=== PATIENT | male | born 1970 | race Two or more races ===

== ENCOUNTER 2018-05-22 12:13 | Observation (INO) | payer OTHER ==
[2018-05-22] MEDS ORDERED: Sodium Chloride 0.9% 1,000 ML IV ONE (12:18)
[2018-05-22] MEDS ORDERED: Ondansetron 4 MG/2 ML SDV IVPUSH ONE (12:18)
[2018-05-22] MEDS ORDERED: Morphine 4 MG/ML Syringe IVPUSH ONE ×2 (12:18→13:39)
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
[2018-05-22 12:53] LABS: CHLORIDE,CL 104 mmol/L (98-107); SODIUM,NA 142 mmol/L (136-148)
--- NOTE | 2018-05-22 12:55 | CR ---
INDICATION: Crushing injury to left thumb. TECHNIQUE: Three views left hand. COMPARISON: None. FINDINGS: There is a fracture dislocation of the left thumb. There is lateral displacement of the phalanges relative to the metacarpal with a fracture at the medial base of the proximal phalanx. There also may be a small cortical fracture at the head of the 1st metacarpal. Small butterfly fragments are present adjacent to the fracture plane. Fracture is an open fracture with soft tissue defect extending to the dislocated metacarpophalangeal joint. No other fractures are seen. Underlying bony mineralization is normal. IMPRESSION: Comminuted open fracture dislocation involving the left metacarpophalangeal joint as above. Dictated by Sarbjit Jay MD @ May 22 2018 12:50PM Signed by Dr. Sarbjit Jay @ May 22 2018 12:54PM
[2018-05-22] MEDS ORDERED: Diphtheria,Pertussis(Acell),Tetanus Vaccine 0.5 ML Syringe IM ONE (12:58)
[2018-05-22] MEDS ORDERED: ceFAZolin 1 GM in Premix Bag 1 BAG IV ONE (12:59)
--- NOTE | 2018-05-22 13:11 | CT ---
INDICATION: Trauma. TECHNIQUE: The chest was scanned from apices to lung bases with 100 mL of Isovue-370. Sagittal and coronal reformatted images were generated. FINDINGS: The visualized thyroid gland is unremarkable. Aorta and great vessels are unremarkable. There is no evidence of aneurysm or dissection. No mediastinal or axillary lymphadenopathy is identified. No pneumothorax is identified. No large consolidations or pleural effusions. No displaced rib fractures are identified. No compression fractures in the thoracic spine. Stones/sludge in the gallbladder. IMPRESSION: 1. No pneumothorax or hemothorax. 2. No displaced rib fractures. 3. No evidence of aortic aneurysm or dissection. 4. Stones/sludge in the gallbladder. Please note that all CT scans at this facility use dose modulation, iterative reconstruction, and/or weight-based dosing when appropriate to reduce radiation dose to as low as reasonably achievable. Dictated by Edin Pa MD @ May 22 2018 1:01PM Signed by Dr. Edin Pa @ May 22 2018 1:09PM
--- NOTE | 2018-05-22 13:26 | CT ---
INDICATION: Trauma TECHNIQUE: CT abdomen and pelvis acquired with IV contrast. 100 mL of Isovue 370 administered. COMPARISON: None available FINDINGS: Lower chest: Minimal subsegmental atelectasis. Liver: Unremarkable. Spleen: Unremarkable. Pancreas: Unremarkable. Gallbladder and bile ducts: Cholelithiasis and/ or milk of calcium within the gallbladder dependently, as well as non dependent circumferential calcifications near the gallbladder neck. Adrenal glands: Unremarkable. Kidneys: Unremarkable. GI tract: Small low attenuation foci in the posterior gastric antral wall on images 40 and 42 could be related to luminal fluid within rugal folds. No bowel obstruction. A normal appendix. No significant pericolonic changes. A decompressed segment of the distal sigmoid colon could be related to peristalsis. Vascular structures: Unremarkable. Lymph nodes: Unremarkable. Miscellaneous: No free air or significant free fluid. Mild induration/edema in the anterior lower abdominal wall subcutaneous fat, inferior to the umbilicus. A small fat containing left inguinal hernia. Pelvic Organs: Mild bladder wall thickening, partially related to underdistention. Grossly unremarkable prostate. Bones: Unremarkable for age. IMPRESSION: No evidence of a visceral or vascular injury within the abdomen or pelvis. Focal induration in the anterior lower abdominal wall subcutaneous fat. Cholelithiasis as well as nondependent circumferential calcifications along the gallbladder neck wall. Correlate with sonographic evaluation. Small low-density foci along the posterior gastric antral wall could be related to fluid within rugal folds, although foci of ulceration are not excluded. Correlate clinically to exclude PUD, and if indicated, with endoscopy. Mild bladder wall thickening. Correlate with urinalysis. Dictated by Didier Moon MD @ 05/22/2018 1:23:13 PM Please note that all CT scans at this facility use dose modulation, iterative reconstruction, and/or weight-based dosing when appropriate to reduce radiation dose to as low as reasonably achievable. Dictated by: Didier Moon MD @ 05/22/2018 13:24:52 (Electronically Signed)
[2018-05-22] MEDS ORDERED: Midazolam 1 MG/ML 2 ML SDV ONE (13:58)
[2018-05-22] MEDS ORDERED: Propofol 200 MG/20 ML SDV ONE (13:58)
[2018-05-22] MEDS ORDERED: fentaNYL 250 MCG/5 ML SDV ONE (13:58)
[2018-05-22] MEDS ORDERED: Ondansetron 4 MG/2 ML SDV ONE (14:00)
[2018-05-22] MEDS ORDERED: Dexamethasone 4 MG/ML 5 ML MDV ONE (14:00)
[2018-05-22] MEDS ORDERED: Rocuronium 10 MG/ML 10 ML Syringe ONE (14:01)
[2018-05-22] MEDS ORDERED: Succinylcholine 200 MG/10 ML MDV ONE (14:01)
--- NOTE | 2018-05-22 14:06 | PCM.PREANE ---
Preanesthetic Assessment - Anesthesia/Transfusion/Family Hx Anesthesia History: No Prior Anesthesia Family History of Anesthesia Reaction: No Transfusion History: No Prior Transfusion(s) - Review of Systems General: No Symptoms Pulmonary: No Symptoms Cardiovascular: No Symptoms Gastrointestinal: No Symptoms Neurological: No Symptoms Other: Reports: None - Physical Assessment NPO Status Date: 05/21/18 (solids yest pm, coffee noon) O2 Sat by Pulse Oximetry: 99 Respiratory Rate: 18 Vital Signs: Last Vital Signs Temp 96.8 F 05/22/18 12:18 Pulse 60 05/22/18 12:18 Resp 18 05/22/18 12:18 BP 111/76 05/22/18 12:18 Pulse Ox 99 05/22/18 12:18 Height: 5 ft 6 in Weight: 77.111 kg ASA Class: 1E Mental Status: Alert & Oriented x3 Airway Class: Mallampati = 2 Dentition: Reports: Normal Dentition ROM/Head Extension: Full Lungs: Clear to Auscultation, Normal Respiratory Effort Cardiovascular: Regular Rate, Regular Rhythm - Lab Values: Laboratory Last Values WBC 9.16 K/uL (4.0-11.0) 05/22/18 12:19 RBC 4.66 M/uL (4.50-5.90) 05/22/18 12:19 Hgb 13.9 g/dL (13.0-17.0) 05/22/18 12:19 Hct 39.8 % (38.0-50.0) 05/22/18 12:19 MCV 85.4 fL (80.0-98.0) 05/22/18 12:19 MCH 29.8 pg (27.0-32.0) 05/22/18 12:19 MCHC 34.9 g/dL (31.0-37.0) 05/22/18 12:19 RDW Std Deviation 40.3 fl (28.0-62.0) 05/22/18 12: RDW Coeff of Arturo 13 % (11.0-15.0) 05/22/18 12:19 Plt Count 272 K/uL (150-400) 05/22/18 12:19 MPV 9.60 fL (7.40-12.00) 05/22/18 12:19 Neut % (Auto) 45.4 % (48.0-80.0) L 05/22/18 12:19 Lymph % (Auto) 47.1 % (16.0-40.0) H 05/22/18 12:19 [place] % (Auto) 6.7 % (0.0-15.0) 05/22/18 12:19 Eos % (Auto) 0.7 % (0.0-7.0) 05/22/18 12:19 Baso % (Auto) 0.1 % (0.0-1.5) 05/22/18 12:19 Neut # (Auto) 4.2 K/uL (1.4-5.7) 05/22/18 12:19 Lymph # (Auto) 4.3 K/uL (0.6-2.4) H 05/22/18 12:19 [place] # (Auto) 0.6 K/uL (0.0-0.8) 05/22/18 12:19 Eos # (Auto) 0.1 K/uL (0.0-0.7) 05/22/18 12:19 Baso # (Auto) 0.0 K/uL (0.0-0.1) 05/22/18 12:19 Nucleated RBC % 0.0 /100WBC 05/22/18 12:19 Nucleated RBCs # 0 K/uL 05/22/18 12:19 INR 0.98 05/22/18 12:19 Sodium 142 mmol/L (136-148) 05/22/18 12:19 Potassium 3.3 mmol/L (3.5-5.1) L 05/22/18 12:19 Chloride 104 mmol/L (98-107) 05/22/18 12:19 Carbon Dioxide 25.0 mmol/L (21.0-32.0) 05/22/18 12:19 BUN 11 mg/dL (7.0-18.0) 05/22/18 12:19 Creatinine 1.5 mg/dL (0.8-1.3) H 05/22/18 12:19 Est Cr Clr Drug Dosing TNP 05/22/18 12:19 Estimated GFR (MDRD) 50.4 ml/min 05/22/18 12:19 Glucose 159 mg/dL (74-106) H 05/22/18 12:19 Calcium 9.3 mg/dL (8.5-10.1) 05/22/18 12:19 Total Bilirubin 0.5 mg/dL (0.2-1.0) 05/22/18 12:19 AST 38 IU/L (15-37) H 05/22/18 12:19 ALT 86 IU/L (14-63) H 05/22/18 12:19 Alkaline Phosphatase 79 U/L (46-116) 05/22/18 12:19 Total Protein 7.6 g/dL (6.4-8.2) 05/22/18 12:19 Albumin 3.7 g/dL (3.4-5.0) 05/22/18 12:19 Globulin 3.9 g/dL (2.6-4.0) 05/22/18 12:19 Albumin/Globulin Ratio 0.9 (0.9-1.6) 05/22/18 12:19 - Allergies Allergies/Adverse Reactions: Allergies Allergy/AdvReac Type Severity Reaction Status Date / Time No Known Allergies Allergy Verified 05/22/18 12:56 - Anesthesia Plan Pre-Op Medication Ordered: Other (ED meds ancef and DPT) - Acknowledgements Anesthesia Type Planned: General Anesthesia Pt an Appropriate Candidate for the Planned Anesthesia: Yes Alternatives and Risks of Anesthesia Discussed w Pt/Guardian: Yes Pt/Guardian Understands and Agrees with Anesthesia Plan: Yes Additional Comments: prior good health, work injury around noon today. CT exam in ED was negative for other injuries. PLAN: GA, possibly ETT because of possible long duration of surgery PreAnesthesia Questionnaire - HOME MEDS Home Medications: Home Meds . [No Known Home Meds] 05/22/18 [History] - CURRENT (IN HOUSE) MEDS Current Meds: Current Medications Discontinued Medications Diphtheria/Tetanus/Acell Pertussis (Adacel) 0.5 ml IM .ONCE ONE Stop: 05/22/18 12:59 Last Admin: 05/22/18 13:09 Dose: 0.5 ml Sodium Chloride (Normal Saline) 1,000 mls @ 999 mls/hr IV STAT ONE Stop: 05/22/18 13:18 Last Admin: 05/22/18 13:04 Dose: 999 mls/hr Cefazolin Sodium/Dextrose 1 gm (/ Premix) 50 mls @ 100 mls/hr IV ONETIME ONE Stop: 05/22/18 13:28 Last Admin: 05/22/18 13:10 Dose: 100 mls/hr Morphine Sulfate (Morphine) 4 mg IVPUSH ONETIME ONE Stop: 05/22/18 12:19 Last Admin: 05/22/18 13:04 Dose: 4 mg Morphine Sulfate (Morphine) 4 mg IVPUSH ONETIME ONE Stop: 05/22/18 13:40 Last Admin: 05/22/18 13:48 Dose: 4 mg Ondansetron HCl (Zofran) 8 mg IVPUSH ONETIME ONE Stop: 05/22/18 12:19 Last Admin: 05/22/18 13:04 Dose: 8 mg
[2018-05-22] MEDS ORDERED: Bupivacaine 0.25%/EPINEPHrine 1:200,000 10 ML SDV ONE (14:23)
[2018-05-22] MEDS ORDERED: Bupivacaine 0.25% 10 ML SDV ONE (15:26)
[2018-05-22] MEDS ORDERED: Lidocaine 2% 5 ML SDV ONE (15:26)
[2018-05-22] MEDS ORDERED: Phenylephrine 1% 10 MG/ML SDV ONE (15:57)
[2018-05-22] MEDS ORDERED: fentaNYL 100 MCG/2 ML SDV IVPUSH PRN (18:18)
[2018-05-22] MEDS ORDERED: Sodium Chloride 0.9% 2.5 ML Syringe FLUSH PRN (19:20)
[2018-05-22] MEDS ORDERED: Sodium Chloride 0.9% 10 ML Syringe FLUSH PRN (19:20)
--- NOTE | 2018-05-22 19:26 | PCM.HP ---
H&P History of Present Illness - General Date of Service: 05/22/18 Admit Problem/Dx: Admission Diagnosis/Problem Admission Diagnosis/Problem Traumatic amputation of finger Source of Information: Patient, EMS, Provider, RN History Limitations: Reports: No Limitations - History of Present Illness Initial Comments - Free Text/Narative: crush injury with amputation of left thumb - extensor tendon intact - small skin bridge. Trauma workup negative. Discussed risks and benefits of surgery and he would like to proceed. Informed consent obtained for replantation attempt of the left thumb. Given crush injru, he does understand the damage to the tissues may be to severe, but given that it is a thumb I would strongly recommend at least trying. Onset of Symptoms: Reports: Today, Sudden Duration of Symptoms: Reports: Hour(s): Location: Reports: Upper Extremity, Left Quality: Reports: Ache, Throbbing Improves with: Reports: None Worsens with: Reports: None Context: Reports: Trauma Associated Symptoms: Reports: Other (some mild abdominal and pulvic soreness from where he was crushed. ) Lower Back Pain Score (Numeric/FACES): 5 - Related Data Allergies/Adverse Reactions: Allergies Allergy/AdvReac Type Severity Reaction Status Date / Time No Known Allergies Allergy Verified 05/22/18 12:56 Home Medications: Home Meds . [No Known Home Meds] 05/22/18 [History] H&P Review of Systems - Review of Systems: Review Of Systems: See Below General: Reports: No Symptoms HEENT: Reports: No Symptoms Pulmonary: Reports: No Symptoms Cardiovascular: Reports: No Symptoms Gastrointestinal: Reports: No Symptoms Skin: Reports: Wound Psychiatric: Reports: No Symptoms Neurological: Denies: Numbness (he states he can feel the finger. ) Immunologic: Reports: No Symptoms Exam - Exam Exam: See Below - Vital Signs Vital Signs: Last Vital Signs Temp 96.8 F 05/22/18 12:18 Pulse 60 05/22/18 12:18 Resp 18 05/22/18 14:06 BP 111/76 05/22/18 12:18 Pulse Ox 99 05/22/18 14:06 Weight: 170 lb - Exam General: Alert, Oriented, Cooperative HEENT: EOMI Lungs: Clear to Auscultation, Normal Respiratory Effort Cardiovascular: Regular Rate, Regular Rhythm GI/Abdominal Exam: Normal Bowel Sounds Back Exam: Normal Inspection Extremities: Other (near copmlete amputation of the left thumb. Small skin bridge and extensor tendon intact. No capillary refill of the thumb itself and bone clearly exposed at the mcp joint. Small finger with small laceration. ) Skin: Warm, Dry, Wound (as above. ) Neurological: Cranial Nerves Intact Neuro Extensive - Mental Status: Alert, Oriented x3 - Patient Data Lab Results Last 24 hrs: Laboratory Results - last 24 hr 05/22/18 05/22/18 05/22/18 Range/Units 12:19 12:19 12:19 WBC 9.16 (4.0-11.0) K/uL RBC 4.66 (4.50-5.90) M/uL Hgb 13.9 (13.0-17.0) g/dL Hct 39.8 (38.0-50.0) % MCV 85.4 (80.0-98.0) fL MCH 29.8 (27.0-32.0) pg MCHC 34.9 (31.0-37.0) g/dL RDW Std Deviation 40.3 (28.0-62.0) fl RDW Coeff of Arturo 13 (11.0-15.0) % Plt Count 272 (150-400) K/uL MPV 9.60 (7.40-12.00) fL Neut % (Auto) 45.4 L (48.0-80.0) % Lymph % (Auto) 47.1 H (16.0-40.0) % [place] % (Auto) 6.7 (0.0-15.0) % Eos % (Auto) 0.7 (0.0-7.0) % Baso % (Auto) 0.1 (0.0-1.5) % Neut # (Auto) 4.2 (1.4-5.7) K/uL Lymph # (Auto) 4.3 H (0.6-2.4) K/uL [place] # (Auto) 0.6 (0.0-0.8) K/uL Eos # (Auto) 0.1 (0.0-0.7) K/uL Baso # (Auto) 0.0 (0.0-0.1) K/uL Nucleated RBC % 0.0 /100WBC Nucleated RBCs # 0 K/uL INR 0.98 Sodium 142 (136-148) mmol/L Potassium 3.3 L (3.5-5.1) mmol/L Chloride 104 (98-107) mmol/L Carbon Dioxide 25.0 (21.0-32.0) mmol/L BUN 11 (7.0-18.0) mg/dL Creatinine 1.5 H (0.8-1.3) mg/dL Est Cr Clr Drug Dosing TNP Estimated GFR (MDRD) 50.4 ml/min Glucose 159 H (74-106) mg/dL Calcium 9.3 (8.5-10.1) mg/dL Total Bilirubin 0.5 (0.2-1.0) mg/dL AST 38 H (15-37) IU/L ALT 86 H (14-63) IU/L Alkaline Phosphatase 79 (46-116) U/L Total Protein 7.6 (6.4-8.2) g/dL Albumin 3.7 (3.4-5.0) g/dL Globulin 3.9 (2.6-4.0) g/dL Albumin/Globulin Ratio 0.9 (0.9-1.6) Blood Type Antibody Screen 05/22/18 Range/Units 13:21 WBC (4.0-11.0) K/uL RBC (4.50-5.90) M/uL Hgb (13.0-17.0) g/dL Hct (38.0-50.0) % MCV (80.0-98.0) fL MCH (27.0-32.0) pg MCHC (31.0-37.0) g/dL RDW Std Deviation (28.0-62.0) fl RDW Coeff of Arturo (11.0-15.0) % Plt Count (150-400) K/uL MPV (7.40-12.00) fL Neut % (Auto) (48.0-80.0) % Lymph % (Auto) (16.0-40.0) % [place] % (Auto) (0.0-15.0) % Eos % (Auto) (0.0-7.0) % Baso % (Auto) (0.0-1.5) % Neut # (Auto) (1.4-5.7) K/uL Lymph # (Auto) (0.6-2.4) K/uL [place] # (Auto) (0.0-0.8) K/uL Eos # (Auto) (0.0-0.7) K/uL Baso # (Auto) (0.0-0.1) K/uL Nucleated RBC % /100WBC Nucleated RBCs # K/uL INR Sodium (136-148) mmol/L Potassium (3.5-5.1) mmol/L Chloride (98-107) mmol/L Carbon Dioxide (21.0-32.0) mmol/L BUN (7.0-18.0) mg/dL Creatinine (0.8-1.3) mg/dL Est Cr Clr Drug Dosing Estimated GFR (MDRD) ml/min Glucose (74-106) mg/dL Calcium (8.5-10.1) mg/dL Total Bilirubin (0.2-1.0) mg/dL AST (15-37) IU/L ALT (14-63) IU/L Alkaline Phosphatase (46-116) U/L Total Protein (6.4-8.2) g/dL Albumin (3.4-5.0) g/dL Globulin (2.6-4.0) g/dL Albumin/Globulin Ratio (0.9-1.6) Blood Type O POSITIVE Antibody Screen NEGATIVE Result Diagrams: 05/22/18 12:19 05/22/18 12:19 Imaging Impressions Last 24 hrs: left thumb amputation at the mcp joint - fracture dislocation type injury. *Q Meaningful Use (ADM) - VTE Risk Assess *Q Each Risk Factor Represents 1 Point: Age 41 - 59 years Total Score 1 Point Risk Factors: 1 Each Risk Factor Represents 2 Points: Major surgery greater than 45 minutes Total Score 2 Point Risk Factors: 2 Each Risk Factor Represents 3 Points: None Total Score 3 Point Risk Factors: 0 Each Risk Factor Represents 5 Points: None Total Score 5 Point Risk Factors: 0 Venous Thromboembolism Risk Factor Score *Q: 3 - Problem List (1) Amputation of left thumb SNOMED Code(s): 705281214 ICD Code: S68.012A - COMPLETE TRAUMATIC MCP AMPUTATION OF LEFT THUMB, INIT Status: Acute Priority: High Current Visit: Yes Qualifiers: Encounter type: initial encounter Qualified Code(s): S68.012A - Complete traumatic metacarpophalangeal amputation of left thumb, initial encounter Problem List Initiated/Reviewed/Updated: Yes Orders Last 24hrs: Active Orders 24 hr Category Date Time Status Admission Status [Patient Status] [ADT] Routine ADT 05/22/18 19:16 Ordered Communication Order [RC] STAT Care 05/22/18 13:15 Inactive Elevate Extremity [RC] CONTINUOUS Care 05/22/18 19:17 Ordered Vaccines to be Administered [RC] PER UNIT ROUTINE Care 05/22/18 12:59 Active Vital Signs [RC] PER UNIT ROUTINE Care 05/22/18 19:17 Ordered Wound Care [RC] DAILY Care 05/22/18 19:17 Ordered Regular Diet [DIET] Diet 05/23/18 Breakfast Ordered UA RFX LEA AND CULT IF INDIC [URIN] Stat Lab 05/22/18 12:16 Ordered Acetaminophen/HYDROcodone [[place] 325-5 MG] Med 05/22/18 19:17 Ordered 1 tab PO Q4H PRN Aspirin Med 05/22/18 21:00 Ordered 81 mg PO BEDTIME Enoxaparin [Lovenox] Med 05/22/18 19:30 Ordered 30 mg SUBCUT Q24H Morphine Med 05/22/18 19:17 Ordered 2 mg IVPUSH Q2H PRN Sodium Chloride 0.9% [Saline Flush] Med 05/22/18 19:20 Ordered 10 ml FLUSH ASDIRECTED PRN Sodium Chloride 0.9% [Saline Flush] Med 05/22/18 19:20 Ordered 2.5 ml FLUSH ASDIRECTED PRN cephALEXin [Keflex] Med 05/23/18 00:00 Ordered 500 mg PO Q6HR fentaNYL [Sublimaze] Med 05/22/18 18:18 Active 50 mcg IVPUSH Q5M PRN Convert IV to Saline Lock [OM.PC] Routine Oth 05/22/18 19:20 Ordered SCD [Sequential Compression Device] [OM.PC] Routine Oth 05/22/18 15:50 Ordered Medication Orders Hydrocodone Bitart/Acetaminophen ([place] 325-5 Mg) 1 tab PO Q4H PRN PRN Reason: Pain (moderate 4-6) Aspirin (Aspirin) 81 mg PO BEDTIME SAMANTHA Cephalexin (Keflex) 500 mg PO Q6HR SAMANTHA Enoxaparin Sodium (Lovenox) 30 mg SUBCUT Q24H SAMANTHA Fentanyl (Sublimaze) 50 mcg IVPUSH Q5M PRN PRN Reason: Pain (severe 7-10) Stop: 05/22/18 21:00 Morphine Sulfate (Morphine) 2 mg IVPUSH Q2H PRN PRN Reason: Pain (severe 7-10) Sodium Chloride (Saline Flush) 10 ml FLUSH ASDIRECTED PRN PRN Reason: Keep Vein Open Sodium Chloride (Saline Flush) 2.5 ml FLUSH ASDIRECTED PRN PRN Reason: Keep Vein Open Assessment/Plan Comment:: To The OR for replantation of the left thumb. he does understand that though this type of injury and the appearance make replantation less likely, it is worth a significant attempt for the thumb. All questions answered and informed consent obtained.
--- NOTE | 2018-05-22 19:31 | PCM.OPNOTE ---
- General Post-Op/Procedure Note Date of Surgery/Procedure: 05/22/18 Operative Procedure(s): replantation of the left thumb, carpal tunnel release and left small finger laceration closure 1.5cm simple Pre Op Diagnosis: left thumb amputation and crush injury Post-Op Diagnosis: Same Anesthesia Technique: General LMA, Local Primary Surgeon: Maddie Jackson Complications: None Condition: Fair Free Text/Narrative:: Intake & Output 05/22/18 05/22/18 05/22/18 07:59 15:59 23:59 Output Total 400 Balance -400 Excellent flow through vessel and capillary refill present but slower that we would like. One artery repair, the other was too badly damaged too distal for even a graft. One digital nerve repaired, the other is attenuated but still present in the soft tissue intact. Artery rechecked after closure by opening a suture here and flowing well. Tacked together. Refill in the PACU was improving and the finger was warm with some improvements in color. We will continue to wait to see if the reflow improves. Vessel flowing well and will allow it to declare itself.
--- NOTE | 2018-05-22 19:45 | PCM.POSTAN ---
POST ANESTHESIA ASSESSMENT - MENTAL STATUS Mental Status: Alert, Oriented - RESPIRATORY Respiratory Status: Respiratory Rate WNL, Airway Patent, O2 Saturation Stable - CARDIOVASCULAR CV Status: Pulse Rate WNL, Blood Pressure Stable - GASTROINTESTINAL GI Status: No Symptoms - POST OP HYDRATION Hydration Status: Adequate & Stable
[2018-05-22] MEDS: Aspirin 81 MG Tab.Chew PO SCH (20:21)
[2018-05-22] MEDS ORDERED: Enoxaparin 30 MG/0.3 ML Syringe SUBCUT SCH (20:30)
[2018-05-22] MEDS: Morphine 2 MG/ML Syringe IVPUSH PRN (20:40)
[2018-05-22] MEDS: Acetaminophen/HYDROcodone 325-5 MG Tab PO PRN (22:44)
[2018-05-22] MEDS: Cephalexin 500 MG Cap PO SCH (23:35)
[2018-05-23] MEDS: Acetaminophen/HYDROcodone 325-5 MG Tab PO PRN ×4 (02:53→23:15)
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
[2018-05-23] MEDS: Cephalexin 500 MG Cap PO SCH ×4 (06:20→23:16)
--- NOTE | 2018-05-23 07:39 | PCM48HPAN ---
Post Anesthesia Note - EVALUATION WITHIN 48HRS OF ANESTHETIC Vital Signs in Normal Range: Yes Patient Participated in Evaluation: Yes Respiratory Function Stable: Yes Airway Patent: Yes Cardiovascular Function Stable: Yes Hydration Status Stable: Yes Pain Control Satisfactory: Yes Nausea and Vomiting Control Satisfactory: Yes Mental Status Recovered: Yes Resp Rate: 17 - COMMENTS/OBSERVATIONS Free Text/Narrative:: Denies complaints at this time.
--- NOTE | 2018-05-23 12:17 | PCM.SURGPN ---
- General Info Date of Service: 05/23/18 Date of Surgery/Procedure: 05/22/18 POD#: 1 Post-Op Diagnosis: left thumb amputation Admission Diagnosis/Problem: Traumatic amputation of finger (thumb left) Functional Status: Reports: Pain Controlled, Tolerating Diet, Ambulating Pain Score: 2 - Review of Systems General: Reports: No Symptoms HEENT: Reports: No Symptoms Pulmonary: Reports: No Symptoms Cardiovascular: Reports: No Symptoms Musculoskeletal: Reports: Arm Pain, Hand Pain Skin: Denies: Bruising, Rash Neurological: Reports: Numbness, Paresthesia Psychiatric: Reports: No Symptoms - Patient Data Vitals - Most Recent: Last Vital Signs Temp 99 F 05/23/18 11:43 Pulse 87 05/23/18 11:43 Resp 16 05/23/18 11:43 BP 120/63 05/23/18 11:43 Pulse Ox 95 05/23/18 11:43 Weight - Most Recent: 170 lb I&O - Last 24 Hours: Intake & Output 05/22/18 05/23/18 05/23/18 23:59 07:59 15:59 Intake Total 3200 480 Output Total 3130 Balance 70 480 Lab Results Last 24 Hrs: Laboratory Results - last 24 hr 05/22/18 05/22/18 05/22/18 Range/Units 12:19 12:19 12:19 WBC 9.16 (4.0-11.0) K/uL RBC 4.66 (4.50-5.90) M/uL Hgb 13.9 (13.0-17.0) g/dL Hct 39.8 (38.0-50.0) % MCV 85.4 (80.0-98.0) fL MCH 29.8 (27.0-32.0) pg MCHC 34.9 (31.0-37.0) g/dL RDW Std Deviation 40.3 (28.0-62.0) fl RDW Coeff of Arturo 13 (11.0-15.0) % Plt Count 272 (150-400) K/uL MPV 9.60 (7.40-12.00) fL Neut % (Auto) 45.4 L (48.0-80.0) % Lymph % (Auto) 47.1 H (16.0-40.0) % [place] % (Auto) 6.7 (0.0-15.0) % Eos % (Auto) 0.7 (0.0-7.0) % Baso % (Auto) 0.1 (0.0-1.5) % Neut # (Auto) 4.2 (1.4-5.7) K/uL Lymph # (Auto) 4.3 H (0.6-2.4) K/uL [place] # (Auto) 0.6 (0.0-0.8) K/uL Eos # (Auto) 0.1 (0.0-0.7) K/uL Baso # (Auto) 0.0 (0.0-0.1) K/uL Nucleated RBC % 0.0 /100WBC Nucleated RBCs # 0 K/uL INR 0.98 Sodium 142 (136-148) mmol/L Potassium 3.3 L (3.5-5.1) mmol/L Chloride 104 (98-107) mmol/L Carbon Dioxide 25.0 (21.0-32.0) mmol/L BUN 11 (7.0-18.0) mg/dL Creatinine 1.5 H (0.8-1.3) mg/dL Est Cr Clr Drug Dosing TNP Estimated GFR (MDRD) 50.4 ml/min Glucose 159 H (74-106) mg/dL Calcium 9.3 (8.5-10.1) mg/dL Total Bilirubin 0.5 (0.2-1.0) mg/dL AST 38 H (15-37) IU/L ALT 86 H (14-63) IU/L Alkaline Phosphatase 79 (46-116) U/L Total Protein 7.6 (6.4-8.2) g/dL Albumin 3.7 (3.4-5.0) g/dL Globulin 3.9 (2.6-4.0) g/dL Albumin/Globulin Ratio 0.9 (0.9-1.6) Urine Color Urine Appearance Urine pH (5.0-8.0) Ur Specific [place] (1.001-1.035) Urine Protein (NEGATIVE) mg/dL Urine Glucose (UA) (NEGATIVE) mg/dL Urine Ketones (NEGATIVE) mg/dL Urine Occult Blood (NEGATIVE) Urine Nitrite (NEGATIVE) Urine Bilirubin (NEGATIVE) Urine Urobilinogen (<2.0) EU/dL Ur Leukocyte Esterase (NEGATIVE) Urine RBC (0-2/HPF) Urine WBC (0-5/HPF) Ur Epithelial Cells (NONE-FEW) Urine Bacteria (NEGATIVE) Blood Type Antibody Screen 05/22/18 05/23/18 Range/Units 13:21 01:20 WBC (4.0-11.0) K/uL RBC (4.50-5.90) M/uL Hgb (13.0-17.0) g/dL Hct (38.0-50.0) % MCV (80.0-98.0) fL MCH (27.0-32.0) pg MCHC (31.0-37.0) g/dL RDW Std Deviation (28.0-62.0) fl RDW Coeff of Arturo (11.0-15.0) % Plt Count (150-400) K/uL MPV (7.40-12.00) fL Neut % (Auto) (48.0-80.0) % Lymph % (Auto) (16.0-40.0) % [place] % (Auto) (0.0-15.0) % Eos % (Auto) (0.0-7.0) % Baso % (Auto) (0.0-1.5) % Neut # (Auto) (1.4-5.7) K/uL Lymph # (Auto) (0.6-2.4) K/uL [place] # (Auto) (0.0-0.8) K/uL Eos # (Auto) (0.0-0.7) K/uL Baso # (Auto) (0.0-0.1) K/uL Nucleated RBC % /100WBC Nucleated RBCs # K/uL INR Sodium (136-148) mmol/L Potassium (3.5-5.1) mmol/L Chloride (98-107) mmol/L Carbon Dioxide (21.0-32.0) mmol/L BUN (7.0-18.0) mg/dL Creatinine (0.8-1.3) mg/dL Est Cr Clr Drug Dosing Estimated GFR (MDRD) ml/min Glucose (74-106) mg/dL Calcium (8.5-10.1) mg/dL Total Bilirubin (0.2-1.0) mg/dL AST (15-37) IU/L ALT (14-63) IU/L Alkaline Phosphatase (46-116) U/L Total Protein (6.4-8.2) g/dL Albumin (3.4-5.0) g/dL Globulin (2.6-4.0) g/dL Albumin/Globulin Ratio (0.9-1.6) Urine Color YELLOW Urine Appearance CLEAR Urine pH 6.0 (5.0-8.0) Ur Specific [place] 1.020 (1.001-1.035) Urine Protein NEGATIVE (NEGATIVE) mg/dL Urine Glucose (UA) NEGATIVE (NEGATIVE) mg/dL Urine Ketones NEGATIVE (NEGATIVE) mg/dL Urine Occult Blood SMALL H (NEGATIVE) Urine Nitrite NEGATIVE (NEGATIVE) Urine Bilirubin NEGATIVE (NEGATIVE) Urine Urobilinogen 0.2 (<2.0) EU/dL Ur Leukocyte Esterase NEGATIVE (NEGATIVE) Urine RBC 1-4 (0-2/HPF) Urine WBC 0-2 (0-5/HPF) Ur Epithelial Cells OCCASIONAL (NONE-FEW) Urine Bacteria RARE (NEGATIVE) Blood Type O POSITIVE Antibody Screen NEGATIVE Med Orders - Current: Current Medications Hydrocodone Bitart/Acetaminophen ([place] 325-5 Mg) 1 tab PO Q4H PRN PRN Reason: Pain (moderate 4-6) Last Admin: 05/23/18 08:47 Dose: 1 tab Aspirin (Aspirin) 81 mg PO BEDTIME [facility] Last Admin: 05/22/18 20:21 Dose: 81 mg Cephalexin (Keflex) 500 mg PO Q6HR [facility] Last Admin: 05/23/18 11:55 Dose: 500 mg Enoxaparin Sodium (Lovenox) 40 mg SUBCUT DAILY@2100 [facility] Morphine Sulfate (Morphine) 2 mg IVPUSH Q2H PRN PRN Reason: Pain (severe 7-10) Last Admin: 05/22/18 20:40 Dose: 2 mg Sodium Chloride (Saline Flush) 10 ml FLUSH ASDIRECTED PRN PRN Reason: Keep Vein Open Sodium Chloride (Saline Flush) 2.5 ml FLUSH ASDIRECTED PRN PRN Reason: Keep Vein Open Discontinued Medications Bupivacaine HCl (Sensorcaine-Mpf 0.25%) Confirm Administered Dose 10 ml .ROUTE .STK-MED ONE Stop: 05/22/18 15:27 Bupivacaine HCl/Epinephrine Bitart (Marcaine 0.25%/Epinephrine 1:200,000) Confirm Administered Dose 10 ml .ROUTE .STK-MED ONE Stop: 05/22/18 14:24 Dexamethasone (Dexamethasone) Confirm Administered Dose 20 mg .ROUTE .STK-MED ONE Stop: 05/22/18 14:01 Diphtheria/Tetanus/Acell Pertussis (Adacel) 0.5 ml IM .ONCE ONE Stop: 05/22/18 12:59 Last Admin: 05/22/18 13:09 Dose: 0.5 ml Enoxaparin Sodium (Lovenox) 30 mg SUBCUT Q24H SAMANTHA Last Admin: 05/22/18 20:41 Dose: 30 mg Fentanyl (Sublimaze) Confirm Administered Dose 250 mcg .ROUTE .STK-MED ONE Stop: 05/22/18 13:59 Fentanyl (Sublimaze) 50 mcg IVPUSH Q5M PRN PRN Reason: Pain (severe 7-10) Stop: 05/22/18 21:00 Sodium Chloride (Normal Saline) 1,000 mls @ 999 mls/hr IV STAT ONE Stop: 05/22/18 13:18 Last Admin: 05/22/18 13:04 Dose: 999 mls/hr Cefazolin Sodium/Dextrose 1 gm (/ Premix) 50 mls @ 100 mls/hr IV ONETIME ONE Stop: 05/22/18 13:28 Last Admin: 05/22/18 13:10 Dose: 100 mls/hr Lidocaine HCl (Xylocaine-Mpf 1%) Confirm Administered Dose 5 mls @ as directed .ROUTE .STK-MED ONE Stop: 05/22/18 14:01 Cefazolin Sodium/Dextrose (Ancef) Confirm Administered Dose 50 mls @ as directed .ROUTE .STK-MED ONE Stop: 05/22/18 15:15 Lidocaine (Xylocaine-Mpf 2%) Confirm Administered Dose 10 ml .ROUTE .STK-MED ONE Stop: 05/22/18 15:27 Midazolam HCl (Versed 1 Mg/Ml) Confirm Administered Dose 2 mg .ROUTE .STK-MED ONE Stop: 05/22/18 13:59 Morphine Sulfate (Morphine) 4 mg IVPUSH ONETIME ONE Stop: 05/22/18 12:19 Last Admin: 05/22/18 13:04 Dose: 4 mg Morphine Sulfate (Morphine) 4 mg IVPUSH ONETIME ONE Stop: 05/22/18 13:40 Last Admin: 05/22/18 13:48 Dose: 4 mg Ondansetron HCl (Zofran) 8 mg IVPUSH ONETIME ONE Stop: 05/22/18 12:19 Last Admin: 05/22/18 13:04 Dose: 8 mg Ondansetron HCl (Zofran) Confirm Administered Dose 4 mg .ROUTE .STK-MED ONE Stop: 05/22/18 14:01 Phenylephrine HCl (Jeffrey-Synephrine) Confirm Administered Dose 10 mg .ROUTE .STK- MED ONE Stop: 05/22/18 15:58 Propofol (Diprivan 20 Ml) Confirm Administered Dose 200 mg .ROUTE .STK-MED ONE Stop: 05/22/18 13:59 Rocuronium [place] (Zemuron) Confirm Administered Dose 100 mg .ROUTE .STK-MED ONE Stop: 05/22/18 14:02 Succinylcholine Chloride (Quelicin) Confirm Administered Dose 200 mg .ROUTE .STK -MED ONE Stop: 05/22/18 14:02 - Exam Wound/Incisions: Healing Well, Dressing Dry and Intact, No Drainage. No: Erythema General: Alert, Oriented, Cooperative Lungs: Normal Respiratory Effort Extremities: Other (Left humb is viable with capillary refil. Improved appearance from last evening and seems to be having some bounce back from the small vessel dmaage from the crush injury. An encouraging sign. ) Skin: Warm, Dry Neurological: Other (still numb on the median nerve and radial nerve post nerve block in the OR> ) Psy/Mental Status: Alert, Normal Affect, Normal Mood - Problem List & Annotations (1) Amputation of left thumb SNOMED Code(s): 209722828 Code(s): S68.012A - COMPLETE TRAUMATIC MCP AMPUTATION OF LEFT THUMB, INIT Status: Acute Priority: High Current Visit: Yes Qualifiers: Encounter type: initial encounter Qualified Code(s): S68.012A - Complete traumatic metacarpophalangeal amputation of left thumb, initial encounter - Problem List Review Problem List Initiated/Reviewed/Updated: Yes - My Orders Last 24 Hours: Active Orders 24 hr Category Date Time Status Admission Status [Patient Status] [ADT] Routine ADT 05/22/18 19:16 Active Communication Order [RC] STAT Care 05/22/18 13:15 Inactive Elevate Extremity [RC] CONTINUOUS Care 05/22/18 19:17 Active Vaccines to be Administered [RC] PER UNIT ROUTINE Care 05/22/18 12:59 Active Wound Care [RC] DAILY Care 05/22/18 19:17 Active Regular Diet [DIET] Diet 05/23/18 Breakfast Active Acetaminophen/HYDROcodone [[place] 325-5 MG] Med 05/22/18 19:17 Active 1 tab PO Q4H PRN Aspirin Med 05/22/18 21:00 Active 81 mg PO BEDTIME Enoxaparin [Lovenox] Med 05/23/18 21:00 Active 40 mg SUBCUT DAILY@2100 Morphine Med 05/22/18 19:17 Active 2 mg IVPUSH Q2H PRN Sodium Chloride 0.9% [Saline Flush] Med 05/22/18 19:20 Active 10 ml FLUSH ASDIRECTED PRN Sodium Chloride 0.9% [Saline Flush] Med 05/22/18 19:20 Active 2.5 ml FLUSH ASDIRECTED PRN cephALEXin [Keflex] Med 05/23/18 00:00 Active 500 mg PO Q6HR Convert IV to Saline Lock [OM.PC] Routine Oth 05/22/18 19:20 Ordered SCD [Sequential Compression Device] [OM.PC] Routine Oth 05/22/18 15:50 Ordered Medication Orders Hydrocodone Bitart/Acetaminophen ([place] 325-5 Mg) 1 tab PO Q4H PRN PRN Reason: Pain (moderate 4-6) Last Admin: 05/23/18 08:47 Dose: 1 tab Admin: 05/23/18 02:53 Dose: 1 tab Admin: 05/22/18 22:44 Dose: 1 tab Aspirin (Aspirin) 81 mg PO BEDTIME [facility] Last Admin: 05/22/18 20:21 Dose: 81 mg Cephalexin (Keflex) 500 mg PO Q6HR SAMANTHA Last Admin: 05/23/18 11:55 Dose: 500 mg Admin: 05/23/18 06:20 Dose: 500 mg Admin: 05/22/18 23:35 Dose: 500 mg Enoxaparin Sodium (Lovenox) 40 mg SUBCUT DAILY@2100 SAMANTHA Morphine Sulfate (Morphine) 2 mg IVPUSH Q2H PRN PRN Reason: Pain (severe 7-10) Last Admin: 05/22/18 20:40 Dose: 2 mg Sodium Chloride (Saline Flush) 10 ml FLUSH ASDIRECTED PRN PRN Reason: Keep Vein Open Sodium Chloride (Saline Flush) 2.5 ml FLUSH ASDIRECTED PRN PRN Reason: Keep Vein Open - Assessment Assessment (Free Text/Narrative):: healing well and still viable thumb. - Plan Plan (Free Text/Narrative):: contineu lovenox and asa dressing change later today observation, pain control and possible discharge sunday/sunday
[2018-05-23] MEDS: Morphine 2 MG/ML Syringe IVPUSH PRN ×2 (13:11→16:48)
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
[2018-05-23] MEDS: Enoxaparin 40 MG/0.4 ML Syringe SUBCUT SCH (20:46)
[2018-05-23] MEDS: Aspirin 81 MG Tab.Chew PO SCH (20:47)
--- NOTE | 2018-05-23 21:35 | PCM.SURGPN ---
- General Info Date of Service: 05/23/18 Functional Status: Reports: Pain Controlled - Review of Systems General: Reports: No Symptoms Pulmonary: Reports: No Symptoms Gastrointestinal: Reports: No Symptoms (justin po diet) - Patient Data Vitals - Most Recent: Last Vital Signs Temp 97.5 F 05/23/18 19:00 Pulse 91 05/23/18 19:00 Resp 16 05/23/18 19:00 BP 128/86 05/23/18 19:00 Pulse Ox 98 05/23/18 19:00 Weight - Most Recent: 170 lb I&O - Last 24 Hours: Intake & Output 05/23/18 05/23/18 05/23/18 06:59 14:59 22:59 Intake Total 480 920 Output Total 1300 Balance 480 -380 Lab Results Last 24 Hrs: Laboratory Results - last 24 hr 05/23/18 Range/Units 01:20 Urine Color YELLOW Urine Appearance CLEAR Urine pH 6.0 (5.0-8.0) Ur Specific [place] 1.020 (1.001-1.035) Urine Protein NEGATIVE (NEGATIVE) mg/dL Urine Glucose (UA) NEGATIVE (NEGATIVE) mg/dL Urine Ketones NEGATIVE (NEGATIVE) mg/dL Urine Occult Blood SMALL H (NEGATIVE) Urine Nitrite NEGATIVE (NEGATIVE) Urine Bilirubin NEGATIVE (NEGATIVE) Urine Urobilinogen 0.2 (<2.0) EU/dL Ur Leukocyte Esterase NEGATIVE (NEGATIVE) Urine RBC 1-4 (0-2/HPF) Urine WBC 0-2 (0-5/HPF) Ur Epithelial Cells OCCASIONAL (NONE-FEW) Urine Bacteria RARE (NEGATIVE) Med Orders - Current: Current Medications Hydrocodone Bitart/Acetaminophen ([place] 325-5 Mg) 1 - 2 tab PO Q4H PRN PRN Reason: Pain (moderate 4-6) Aspirin (Aspirin) 81 mg PO BEDTIME [facility] Last Admin: 05/23/18 20:47 Dose: 81 mg Cephalexin (Keflex) 500 mg PO Q6HR [facility] Last Admin: 05/23/18 18:01 Dose: 500 mg Enoxaparin Sodium (Lovenox) 40 mg SUBCUT DAILY@2100 [facility] Last Admin: 05/23/18 20:46 Dose: 40 mg Morphine Sulfate (Morphine) 2 mg IVPUSH Q2H PRN PRN Reason: Pain (severe 7-10) Last Admin: 05/23/18 16:48 Dose: 2 mg Sodium Chloride (Saline Flush) 10 ml FLUSH ASDIRECTED PRN PRN Reason: Keep Vein Open Sodium Chloride (Saline Flush) 2.5 ml FLUSH ASDIRECTED PRN PRN Reason: Keep Vein Open Discontinued Medications Hydrocodone Bitart/Acetaminophen ([place] 325-5 Mg) 1 tab PO Q4H PRN PRN Reason: Pain (moderate 4-6) Last Admin: 05/23/18 18:01 Dose: 2 tab Bupivacaine HCl (Sensorcaine-Mpf 0.25%) Confirm Administered Dose 10 ml .ROUTE .STK-MED ONE Stop: 05/22/18 15:27 Bupivacaine HCl/Epinephrine Bitart ([place] 0.25%/Epinephrine 1:200,000) Confirm Administered Dose 10 ml .ROUTE .STK-MED ONE Stop: 05/22/18 14:24 Dexamethasone (Dexamethasone) Confirm Administered Dose 20 mg .ROUTE .STK-MED ONE Stop: 05/22/18 14:01 Diphtheria/Tetanus/Acell Pertussis (Adacel) 0.5 ml IM .ONCE ONE Stop: 05/22/18 12:59 Last Admin: 05/22/18 13:09 Dose: 0.5 ml Enoxaparin Sodium (Lovenox) 30 mg SUBCUT Q24H [facility] Last Admin: 05/22/18 20:41 Dose: 30 mg Fentanyl (Sublimaze) Confirm Administered Dose 250 mcg .ROUTE .STK-MED ONE Stop: 05/22/18 13:59 Fentanyl (Sublimaze) 50 mcg IVPUSH Q5M PRN PRN Reason: Pain (severe 7-10) Stop: 05/22/18 21:00 Sodium Chloride (Normal Saline) 1,000 mls @ 999 mls/hr IV STAT ONE Stop: 05/22/18 13:18 Last Admin: 05/22/18 13:04 Dose: 999 mls/hr Cefazolin Sodium/Dextrose 1 gm (/ Premix) 50 mls @ 100 mls/hr IV ONETIME ONE Stop: 05/22/18 13:28 Last Admin: 05/22/18 13:10 Dose: 100 mls/hr Lidocaine HCl (Xylocaine-Mpf 1%) Confirm Administered Dose 5 mls @ as directed .ROUTE .STK-MED ONE Stop: 05/22/18 14:01 Cefazolin Sodium/Dextrose (Ancef) Confirm Administered Dose 50 mls @ as directed .ROUTE .STK-MED ONE Stop: 05/22/18 15:15 Lidocaine (Xylocaine-Mpf 2%) Confirm Administered Dose 10 ml .ROUTE .STK-MED ONE Stop: 05/22/18 15:27 Midazolam HCl (Versed 1 Mg/Ml) Confirm Administered Dose 2 mg .ROUTE .STK-MED ONE Stop: 05/22/18 13:59 Morphine Sulfate (Morphine) 4 mg IVPUSH ONETIME ONE Stop: 05/22/18 12:19 Last Admin: 05/22/18 13:04 Dose: 4 mg Morphine Sulfate (Morphine) 4 mg IVPUSH ONETIME ONE Stop: 05/22/18 13:40 Last Admin: 05/22/18 13:48 Dose: 4 mg Ondansetron HCl (Zofran) 8 mg IVPUSH ONETIME ONE Stop: 05/22/18 12:19 Last Admin: 05/22/18 13:04 Dose: 8 mg Ondansetron HCl (Zofran) Confirm Administered Dose 4 mg .ROUTE .STK-MED ONE Stop: 05/22/18 14:01 Phenylephrine HCl (Jeffrey-Synephrine) Confirm Administered Dose 10 mg .ROUTE .STK- MED ONE Stop: 05/22/18 15:58 Propofol (Diprivan 20 Ml) Confirm Administered Dose 200 mg .ROUTE .STK-MED ONE Stop: 05/22/18 13:59 Rocuronium [place] (Zemuron) Confirm Administered Dose 100 mg .ROUTE .STK-MED ONE Stop: 05/22/18 14:02 Succinylcholine Chloride (Quelicin) Confirm Administered Dose 200 mg .ROUTE .STK -MED ONE Stop: 05/22/18 14:02 - Exam GI/Abdominal Exam: Normal Bowel Sounds, Soft - Problem List Review Problem List Initiated/Reviewed/Updated: Yes - My Orders Last 24 Hours: Active Orders 24 hr Category Date Time Status Admission Status [Patient Status] [ADT] Routine ADT 05/23/18 17:08 Active Change Admitting Physician [ADT] Routine ADT 05/23/18 17:08 Ordered Regular Diet [DIET] Diet 05/23/18 Breakfast Active Acetaminophen/HYDROcodone [[place] 325-5 MG] Med 05/23/18 18:15 Active 1 - 2 tab PO Q4H PRN Aspirin Med 05/22/18 21:00 Active 81 mg PO BEDTIME Enoxaparin [Lovenox] Med 05/23/18 21:00 Active 40 mg SUBCUT DAILY@2100 cephALEXin [Keflex] Med 05/23/18 00:00 Active 500 mg PO Q6HR Medication Orders Hydrocodone Bitart/Acetaminophen ([place] 325-5 Mg) 1 - 2 tab PO Q4H PRN PRN Reason: Pain (moderate 4-6) Aspirin (Aspirin) 81 mg PO BEDTIME [facility] Last Admin: 05/23/18 20:47 Dose: 81 mg Admin: 05/22/18 20:21 Dose: 81 mg Cephalexin (Keflex) 500 mg PO Q6HR [facility] Last Admin: 05/23/18 18:01 Dose: 500 mg Admin: 05/23/18 11:55 Dose: 500 mg Admin: 05/23/18 06:20 Dose: 500 mg Admin: 05/22/18 23:35 Dose: 500 mg Enoxaparin Sodium (Lovenox) 40 mg SUBCUT DAILY@2100 [facility] Last Admin: 05/23/18 20:46 Dose: 40 mg Morphine Sulfate (Morphine) 2 mg IVPUSH Q2H PRN PRN Reason: Pain (severe 7-10) Last Admin: 05/23/18 16:48 Dose: 2 mg Admin: 05/23/18 13:11 Dose: 2 mg Admin: 05/22/18 20:40 Dose: 2 mg Sodium Chloride (Saline Flush) 10 ml FLUSH ASDIRECTED PRN PRN Reason: Keep Vein Open Sodium Chloride (Saline Flush) 2.5 ml FLUSH ASDIRECTED PRN PRN Reason: Keep Vein Open - Assessment Assessment (Free Text/Narrative):: doing well from trauma observation standpoint; L hand surgery management per Dr. Jackson - Plan Plan (Free Text/Narrative):: doing well from trauma observation standpoint; L hand surgery management per Dr. Jackson
[2018-05-24] MEDS: Acetaminophen/HYDROcodone 325-5 MG Tab PO PRN ×4 (06:11→22:30)
[2018-05-24] MEDS: Cephalexin 500 MG Cap PO SCH ×4 (06:12→23:31)
[2018-05-24] MEDS: Enoxaparin 40 MG/0.4 ML Syringe SUBCUT SCH (20:22)
[2018-05-24] MEDS: Aspirin 81 MG Tab.Chew PO SCH (20:22)
[2018-05-25] MEDS: Cephalexin 500 MG Cap PO SCH (06:12)
[2018-05-25] MEDS: Acetaminophen/HYDROcodone 325-5 MG Tab PO PRN (09:03)
--- NOTE | 2018-05-25 09:35 | PCM.PN ---
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 ) Skin: Reports: Bruising (and wound healing as expected) Neurological: Reports: Numbness (still of the hand with swelling in the median nerve distribution. Carpal tunnel released during surgery. Sensation present but does not feel "normal" to him at this time. Some minor changes of the ulnar distribution too. ) Psychiatric: Reports: No Symptoms - Patient Data Vitals - Most Recent: Last Vital Signs Temp 97.2 F 05/25/18 08:00 Pulse 72 05/25/18 08:00 Resp 16 05/25/18 08:00 BP 107/66 05/25/18 08:00 Pulse Ox 94 L 05/25/18 08:00 Weight - Most Recent: 170 lb I&O - Last 24 Hours: Intake & Output 05/24/18 05/25/18 05/25/18 23:59 07:59 15:59 Intake Total 1116 750 Output Total 1800 650 Balance -684 100 Med Orders - Current: Current Medications Hydrocodone Bitart/Acetaminophen ([place] 325-5 Mg) 1 - 2 tab PO Q4H PRN PRN Reason: Pain (moderate 4-6) Last Admin: 05/25/18 09:03 Dose: 2 tab Aspirin (Aspirin) 81 mg PO BEDTIME [facility] Last Admin: 05/24/18 20:22 Dose: 81 mg Cephalexin (Keflex) 500 mg PO Q6HR [facility] Last Admin: 05/25/18 06:12 Dose: 500 mg Enoxaparin Sodium (Lovenox) 40 mg SUBCUT DAILY@2100 [facility] Last Admin: 05/24/18 20:22 Dose: 40 mg Morphine Sulfate (Morphine) 2 mg IVPUSH Q2H PRN PRN Reason: Pain (severe 7-10) Last Admin: 05/23/18 16:48 Dose: 2 mg Sodium Chloride (Saline Flush) 10 ml FLUSH ASDIRECTED PRN PRN Reason: Keep Vein Open Sodium Chloride (Saline Flush) 2.5 ml FLUSH ASDIRECTED PRN PRN Reason: Keep Vein Open Discontinued Medications Hydrocodone Bitart/Acetaminophen ([place] 325-5 Mg) 1 tab PO Q4H PRN PRN Reason: Pain (moderate 4-6) Last Admin: 05/23/18 18:01 Dose: 2 tab Bupivacaine HCl (Sensorcaine-Mpf 0.25%) Confirm Administered Dose 10 ml .ROUTE .STK-MED ONE Stop: 05/22/18 15:27 Bupivacaine HCl/Epinephrine Bitart ([place] 0.25%/Epinephrine 1:200,000) Confirm Administered Dose 10 ml .ROUTE .STK-MED ONE Stop: 05/22/18 14:24 Dexamethasone (Dexamethasone) Confirm Administered Dose 20 mg .ROUTE .STK-MED ONE Stop: 05/22/18 14:01 Diphtheria/Tetanus/Acell Pertussis (Adacel) 0.5 ml IM .ONCE ONE Stop: 05/22/18 12:59 Last Admin: 05/22/18 13:09 Dose: 0.5 ml Enoxaparin Sodium (Lovenox) 30 mg SUBCUT Q24H [facility] Last Admin: 05/22/18 20:41 Dose: 30 mg Fentanyl (Sublimaze) Confirm Administered Dose 250 mcg .ROUTE .STK-MED ONE Stop: 05/22/18 13:59 Fentanyl (Sublimaze) 50 mcg IVPUSH Q5M PRN PRN Reason: Pain (severe 7-10) Stop: 05/22/18 21:00 Sodium Chloride (Normal Saline) 1,000 mls @ 999 mls/hr IV STAT ONE Stop: 05/22/18 13:18 Last Admin: 05/22/18 13:04 Dose: 999 mls/hr Cefazolin Sodium/Dextrose 1 gm (/ Premix) 50 mls @ 100 mls/hr IV ONETIME ONE Stop: 05/22/18 13:28 Last Admin: 05/22/18 13:10 Dose: 100 mls/hr Lidocaine HCl (Xylocaine-Mpf 1%) Confirm Administered Dose 5 mls @ as directed .ROUTE .STK-MED ONE Stop: 05/22/18 14:01 Cefazolin Sodium/Dextrose (Ancef) Confirm Administered Dose 50 mls @ as directed .ROUTE .STK-MED ONE Stop: 05/22/18 15:15 Lidocaine (Xylocaine-Mpf 2%) Confirm Administered Dose 10 ml .ROUTE .STK-MED ONE Stop: 05/22/18 15:27 Midazolam HCl (Versed 1 Mg/Ml) Confirm Administered Dose 2 mg .ROUTE .STK-MED ONE Stop: 05/22/18 13:59 Morphine Sulfate (Morphine) 4 mg IVPUSH ONETIME ONE Stop: 05/22/18 12:19 Last Admin: 05/22/18 13:04 Dose: 4 mg Morphine Sulfate (Morphine) 4 mg IVPUSH ONETIME ONE Stop: 05/22/18 13:40 Last Admin: 05/22/18 13:48 Dose: 4 mg Ondansetron HCl (Zofran) 8 mg IVPUSH ONETIME ONE Stop: 05/22/18 12:19 Last Admin: 05/22/18 13:04 Dose: 8 mg Ondansetron HCl (Zofran) Confirm Administered Dose 4 mg .ROUTE .[facility]-MED ONE Stop: 05/22/18 14:01 Phenylephrine HCl (Jeffrey-Synephrine) Confirm Administered Dose 10 mg .ROUTE .[facility]- MED ONE Stop: 05/22/18 15:58 Propofol (Diprivan 20 Ml) Confirm Administered Dose 200 mg .ROUTE .ST-MED ONE Stop: 05/22/18 13:59 Rocuronium [place] (Zemuron) Confirm Administered Dose 100 mg .ROUTE .[facility]-MED ONE Stop: 05/22/18 14:02 Succinylcholine Chloride (Quelicin) Confirm Administered Dose 200 mg .ROUTE .[facility] -MED ONE Stop: 05/22/18 14:02 - Exam Quality Assessment: No: Supplemental Oxygen General: Alert, Oriented, Cooperative HEENT: Pupils Reactive, EOMI Lungs: Normal Respiratory Effort Extremities: Normal Capillary Refill (within 2 seconds and without signs of venous congestion. Excellent appearance of the thumb. ) Skin: Warm, Dry Wound/Incisions: Healing Well, Drainage (at the incision site - serosanguinous. Small finger with a scab and healing as expected. ) Neurological: No New Focal Deficit Psy/Mental Status: Alert, Normal Affect, Normal Mood - Problem List & Annotations (1) Amputation of left thumb SNOMED Code(s): 658989706 Code(s): S68.012A - COMPLETE TRAUMATIC MCP AMPUTATION OF LEFT THUMB, INIT Status: Acute Priority: High Current Visit: Yes Qualifiers: Encounter type: initial encounter Qualified Code(s): S68.012A - Complete traumatic metacarpophalangeal amputation of left thumb, initial encounter - Problem List Review Problem List Initiated/Reviewed/Updated: Yes - Plan Plan:: Antibiotics and lovenox continue. Daily baby asa [place] for pain. Splint and dressing change in am and likely home. Excellent progress.
--- NOTE | 2018-05-25 09:38 | PCM.PN ---
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 ) - Patient Data Vitals - Most Recent: Last Vital Signs Temp 97.2 F 05/25/18 08:00 Pulse 72 05/25/18 08:00 Resp 16 05/25/18 08:00 BP 107/66 05/25/18 08:00 Pulse Ox 94 L 05/25/18 08:00 Weight - Most Recent: 170 lb I&O - Last 24 Hours: Intake & Output 05/24/18 05/25/18 05/25/18 23:59 07:59 15:59 Intake Total 1116 750 Output Total 1800 650 Balance -684 100 Med Orders - Current: Current Medications Hydrocodone Bitart/Acetaminophen ([place] 325-5 Mg) 1 - 2 tab PO Q4H PRN PRN Reason: Pain (moderate 4-6) Last Admin: 05/25/18 09:03 Dose: 2 tab Aspirin (Aspirin) 81 mg PO BEDTIME [facility] Last Admin: 05/24/18 20:22 Dose: 81 mg Cephalexin (Keflex) 500 mg PO Q6HR [facility] Last Admin: 05/25/18 06:12 Dose: 500 mg Enoxaparin Sodium (Lovenox) 40 mg SUBCUT DAILY@2100 [facility] Last Admin: 05/24/18 20:22 Dose: 40 mg Morphine Sulfate (Morphine) 2 mg IVPUSH Q2H PRN PRN Reason: Pain (severe 7-10) Last Admin: 05/23/18 16:48 Dose: 2 mg Sodium Chloride (Saline Flush) 10 ml FLUSH ASDIRECTED PRN PRN Reason: Keep Vein Open Sodium Chloride (Saline Flush) 2.5 ml FLUSH ASDIRECTED PRN PRN Reason: Keep Vein Open Discontinued Medications Hydrocodone Bitart/Acetaminophen ([place] 325-5 Mg) 1 tab PO Q4H PRN PRN Reason: Pain (moderate 4-6) Last Admin: 05/23/18 18:01 Dose: 2 tab Bupivacaine HCl (Sensorcaine-Mpf 0.25%) Confirm Administered Dose 10 ml .ROUTE .STK-MED ONE Stop: 05/22/18 15:27 Bupivacaine HCl/Epinephrine Bitart ([place] 0.25%/Epinephrine 1:200,000) Confirm Administered Dose 10 ml .ROUTE .STK-MED ONE Stop: 05/22/18 14:24 Dexamethasone (Dexamethasone) Confirm Administered Dose 20 mg .ROUTE .STK-MED ONE Stop: 05/22/18 14:01 Diphtheria/Tetanus/Acell Pertussis (Adacel) 0.5 ml IM .ONCE ONE Stop: 05/22/18 12:59 Last Admin: 05/22/18 13:09 Dose: 0.5 ml Enoxaparin Sodium (Lovenox) 30 mg SUBCUT Q24H [facility] Last Admin: 05/22/18 20:41 Dose: 30 mg Fentanyl (Sublimaze) Confirm Administered Dose 250 mcg .ROUTE .STK-MED ONE Stop: 05/22/18 13:59 Fentanyl (Sublimaze) 50 mcg IVPUSH Q5M PRN PRN Reason: Pain (severe 7-10) Stop: 05/22/18 21:00 Sodium Chloride (Normal Saline) 1,000 mls @ 999 mls/hr IV STAT ONE Stop: 05/22/18 13:18 Last Admin: 05/22/18 13:04 Dose: 999 mls/hr Cefazolin Sodium/Dextrose 1 gm (/ Premix) 50 mls @ 100 mls/hr IV ONETIME ONE Stop: 05/22/18 13:28 Last Admin: 05/22/18 13:10 Dose: 100 mls/hr Lidocaine HCl (Xylocaine-Mpf 1%) Confirm Administered Dose 5 mls @ as directed .ROUTE .STK-MED ONE Stop: 05/22/18 14:01 Cefazolin Sodium/Dextrose (Ancef) Confirm Administered Dose 50 mls @ as directed .ROUTE .STK-MED ONE Stop: 05/22/18 15:15 Lidocaine (Xylocaine-Mpf 2%) Confirm Administered Dose 10 ml .ROUTE .STK-MED ONE Stop: 05/22/18 15:27 Midazolam HCl (Versed 1 Mg/Ml) Confirm Administered Dose 2 mg .ROUTE .STK-MED ONE Stop: 05/22/18 13:59 Morphine Sulfate (Morphine) 4 mg IVPUSH ONETIME ONE Stop: 05/22/18 12:19 Last Admin: 05/22/18 13:04 Dose: 4 mg Morphine Sulfate (Morphine) 4 mg IVPUSH ONETIME ONE Stop: 05/22/18 13:40 Last Admin: 05/22/18 13:48 Dose: 4 mg Ondansetron HCl (Zofran) 8 mg IVPUSH ONETIME ONE Stop: 05/22/18 12:19 Last Admin: 05/22/18 13:04 Dose: 8 mg Ondansetron HCl (Zofran) Confirm Administered Dose 4 mg .ROUTE .STK-MED ONE Stop: 05/22/18 14:01 Phenylephrine HCl ([place]rey-Synephrine) Confirm Administered Dose 10 mg .ROUTE .STK- MED ONE Stop: 05/22/18 15:58 Propofol (Diprivan 20 Ml) Confirm Administered Dose 200 mg .ROUTE .STK-MED ONE Stop: 05/22/18 13:59 Rocuronium [place] (Zemuron) Confirm Administered Dose 100 mg .ROUTE .STK-MED ONE Stop: 05/22/18 14:02 Succinylcholine Chloride (Quelicin) Confirm Administered Dose 200 mg .ROUTE .STK -MED ONE Stop: 05/22/18 14:02 - Exam General: Alert, Oriented, Cooperative HEENT: EOMI Lungs: Normal Respiratory Effort Extremities: Normal Capillary Refill (excellent progress on the finger and still without venous congestion. Continues to be a viable thumb with normal capillary refill time of about 2 seconds. ) Skin: Warm, Dry Wound/Incisions: Healing Well (incisions clean and intact. minor drainage from the loosly closed incision. ) Neurological: No New Focal Deficit (continues to have some median nerve numbness and minor on the ulnar nerve. 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 ) Psy/Mental Status: Alert, Normal Affect, Normal Mood - Problem List & Annotations (1) Amputation of left thumb SNOMED Code(s): 255467093 Code(s): S68.012A - COMPLETE TRAUMATIC MCP AMPUTATION OF LEFT THUMB, INIT Status: Acute Priority: High Current Visit: Yes Qualifiers: Encounter type: initial encounter Qualified Code(s): S68.012A - Complete traumatic metacarpophalangeal amputation of left thumb, initial encounter - Problem List Review Problem List Initiated/Reviewed/Updated: Yes - Plan Plan:: Antibiotics continue Daily baby asa [place] for pain. Splint and dressing change today. Excellent progress and home today. Follow up Sunday at 11am in clinic, sooner with any issues or concerns.
--- NOTE | 2018-05-25 09:43 | PCM.DCSUM1 ---
Discharge Summary - Hospital Course Free Text/Narrative:: admitted 05-22 for left thumb amputation s/p traumatic pinning between two semi trucks. Cleared from [place] and taken to the OR for thumb replant. Maintained in hospital with excellent results and viable thumb s/p replant. Continues to do well and pain controlled. 3 days of Lovenox and baby asa. Home and continue baby asa. HPI Initial Comments: left thumb amputation with no viability on initial exam. No blood flow and no capillary refill. Small dorsal skin bridge attaching the severed thumb. Diagnosis: Stroke: No Modified Harvey Scale: Slight Disable;Unable to Carry Out Prev Act.Able to Look After Affairs Modified Harvey Scale Score: 2 - Discharge Data Discharge Date: 05/25/18 Discharge Disposition: Home, Self-Care 01 Condition: Fair - Discharge Diagnosis/Problem(s) (1) Amputation of left thumb SNOMED Code(s): 872634554 ICD Code: S68.012A - COMPLETE TRAUMATIC MCP AMPUTATION OF LEFT THUMB, INIT Status: Acute Priority: High Current Visit: Yes Qualifiers: Encounter type: initial encounter Qualified Code(s): S68.012A - Complete traumatic metacarpophalangeal amputation of left thumb, initial encounter - Patient Summary/Data Operative Procedure(s) Performed: replantation of the left thumb, carpal tunnel release and left small finger laceration closure 1.5cm simple Complications: none Hospital Course: uneventful and as expected - Discharge Plan *PRESCRIPTION DRUG MONITORING PROGRAM REVIEWED*: No *COPY OF PRESCRIPTION DRUG MONITORING REPORT IN PATIENT [place]: No Home Medications: Home Meds . [No Known Home Meds] 05/22/18 [History] Oxygen Therapy Mode: Room Air Patient Handouts: Acetaminophen; Hydrocodone tablets or capsules, Thumb Fracture, Cephalexin tablets or capsules Referrals: Maddie Jackson MD [Physician] - - Discharge Summary/Plan Comment DC Time >30 min.: No Discharge Summary/Plan Comment: Home and continue baby asa. Keep meticulously warm, especially in the days ahead. Splint at all times and 10lb weight limit restriction. Will discuss return to work upon reeval sunday. On norco for pain control. No cigarette smoke exposure. He is a non-smoker. Follow up with me in clinic Sunday at 11am. 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 Functional Status: Reports: Pain Controlled - Patient Data Vitals - Most Recent: Last Vital Signs Temp 97.2 F 05/25/18 08:00 Pulse 72 05/25/18 08:00 Resp 16 05/25/18 08:00 BP 107/66 05/25/18 08:00 Pulse Ox 94 L 05/25/18 08:00 Weight - Most Recent: 170 lb I&O - Last 24 hours: Intake & Output 05/24/18 05/25/18 05/25/18 23:59 07:59 15:59 Intake Total 1116 750 Output Total 1800 650 Balance -684 100 Med Orders - Current: Current Medications Hydrocodone Bitart/Acetaminophen ([place] 325-5 Mg) 1 - 2 tab PO Q4H PRN PRN Reason: Pain (moderate 4-6) Last Admin: 05/25/18 09:03 Dose: 2 tab Aspirin (Aspirin) 81 mg PO BEDTIME [facility] Last Admin: 05/24/18 20:22 Dose: 81 mg Cephalexin (Keflex) 500 mg PO Q6HR [facility] Last Admin: 05/25/18 06:12 Dose: 500 mg Enoxaparin Sodium (Lovenox) 40 mg SUBCUT DAILY@2100 SAMANTAH Last Admin: 05/24/18 20:22 Dose: 40 mg Morphine Sulfate (Morphine) 2 mg IVPUSH Q2H PRN PRN Reason: Pain (severe 7-10) Last Admin: 05/23/18 16:48 Dose: 2 mg Sodium Chloride (Saline Flush) 10 ml FLUSH ASDIRECTED PRN PRN Reason: Keep Vein Open Sodium Chloride (Saline Flush) 2.5 ml FLUSH ASDIRECTED PRN PRN Reason: Keep Vein Open Discontinued Medications Hydrocodone Bitart/Acetaminophen ([place] 325-5 Mg) 1 tab PO Q4H PRN PRN Reason: Pain (moderate 4-6) Last Admin: 05/23/18 18:01 Dose: 2 tab Bupivacaine HCl (Sensorcaine-Mpf 0.25%) Confirm Administered Dose 10 ml .ROUTE .STK-MED ONE Stop: 05/22/18 15:27 Bupivacaine HCl/Epinephrine Bitart (Marcaine 0.25%/Epinephrine 1:200,000) Confirm Administered Dose 10 ml .ROUTE .STK-MED ONE Stop: 05/22/18 14:24 Dexamethasone (Dexamethasone) Confirm Administered Dose 20 mg .ROUTE .STK-MED ONE Stop: 05/22/18 14:01 Diphtheria/Tetanus/Acell Pertussis (Adacel) 0.5 ml IM .ONCE ONE Stop: 05/22/18 12:59 Last Admin: 05/22/18 13:09 Dose: 0.5 ml Enoxaparin Sodium (Lovenox) 30 mg SUBCUT Q24H SAMANTHA Last Admin: 05/22/18 20:41 Dose: 30 mg Fentanyl (Sublimaze) Confirm Administered Dose 250 mcg .ROUTE .STK-MED ONE Stop: 05/22/18 13:59 Fentanyl (Sublimaze) 50 mcg IVPUSH Q5M PRN PRN Reason: Pain (severe 7-10) Stop: 05/22/18 21:00 Sodium Chloride (Normal Saline) 1,000 mls @ 999 mls/hr IV STAT ONE Stop: 05/22/18 13:18 Last Admin: 05/22/18 13:04 Dose: 999 mls/hr Cefazolin Sodium/Dextrose 1 gm (/ Premix) 50 mls @ 100 mls/hr IV ONETIME ONE Stop: 05/22/18 13:28 Last Admin: 05/22/18 13:10 Dose: 100 mls/hr Lidocaine HCl (Xylocaine-Mpf 1%) Confirm Administered Dose 5 mls @ as directed .ROUTE .STK-MED ONE Stop: 05/22/18 14:01 Cefazolin Sodium/Dextrose (Ancef) Confirm Administered Dose 50 mls @ as directed .ROUTE .STK-MED ONE Stop: 05/22/18 15:15 Lidocaine (Xylocaine-Mpf 2%) Confirm Administered Dose 10 ml .ROUTE .STK-MED ONE Stop: 05/22/18 15:27 Midazolam HCl (Versed 1 Mg/Ml) Confirm Administered Dose 2 mg .ROUTE .STK-MED ONE Stop: 05/22/18 13:59 Morphine Sulfate (Morphine) 4 mg IVPUSH ONETIME ONE Stop: 05/22/18 12:19 Last Admin: 05/22/18 13:04 Dose: 4 mg Morphine Sulfate (Morphine) 4 mg IVPUSH ONETIME ONE Stop: 05/22/18 13:40 Last Admin: 05/22/18 13:48 Dose: 4 mg Ondansetron HCl (Zofran) 8 mg IVPUSH ONETIME ONE Stop: 05/22/18 12:19 Last Admin: 05/22/18 13:04 Dose: 8 mg Ondansetron HCl (Zofran) Confirm Administered Dose 4 mg .ROUTE .STK-MED ONE Stop: 05/22/18 14:01 Phenylephrine HCl (Jeffrey-Synephrine) Confirm Administered Dose 10 mg .ROUTE .STK- MED ONE Stop: 05/22/18 15:58 Propofol (Diprivan 20 Ml) Confirm Administered Dose 200 mg .ROUTE .STK-MED ONE Stop: 05/22/18 13:59 Rocuronium [place] (Zemuron) Confirm Administered Dose 100 mg .ROUTE .STK-MED ONE Stop: 05/22/18 14:02 Succinylcholine Chloride (Quelicin) Confirm Administered Dose 200 mg .ROUTE .STK -MED ONE Stop: 05/22/18 14:02 - Exam General: Reports: Alert, Oriented, Cooperative Skin: Reports: Warm, Dry Wound/Incisions: Reports: Healing Well Discharge Operative/Procedures - Procedures Performed Operations/Procedure Comment: splint - short arm left thumb spica plast splint placed.
--- NOTE | 2018-05-28 08:36 | OR ---
SURGEON: MIKY BENÍTEZ MD DATE OF PROCEDURE: 05/22/2018 PREOPERATIVE DIAGNOSIS: 1. 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 POSTOPERATIVE DIAGNOSIS: 1. Left thumb amputation with Significant crush injury. PROCEDURES: 1. Replantation of the left thumb just proximal to the metacarpophalangeal joint. 2. Carpal tunnel release. 3. Left small finger laceration closure, simple 1.5 cm. SYSTEMS APPLICATIONS PROGRAMMING LEAD: None. ANESTHESIA: General LMA with local. INDICATIONS: Mr. Love is a 47-year-old gentleman, who presented to the emergency room with amputation of the left thumb. He was pinned between two semis and was worked up from a trauma standpoint. Emergency room physician has cleared him. His only injury currently being the left thumb amputation. The thumb itself was completely devitalized and cool upon presentation. There is a very small bridge of skin and a shredded portion of the extensor tendon maintaining it in close proximity . There was a fracture dislocation at the base of proximal phalanx. The laceration extends into the thenar eminence involving small portion of the musculature here. We discussed thoroughly the risks and benefits of replantation of the left thumb. Given the significant crush injury to the other parts of the thumb, revascularization is somewhat tenuous and difficult. Given that it is a thumb, I would recommend attempt, because this comprises approximately 20% of his total body functions. It is his nondominant hand. Risks and benefits were discussed with him thoroughly and informed consent was obtained. PROCEDURE IN DETAIL: After informed consent was obtained and placed on the chart, the patient was brought to the operating theater and laid in supine position. After adequate general anesthesia was obtained, the area was prepped and draped and a time-out was completed to confirm side and site. The arm was exsanguinated and tourniquet was insufflated to 200 mmHg. Attention was first paid to copious irrigation and identification of all structures. We then approached the bony repair. There was a small fracture of the base of the proximal phalanx. The thumb was placed first in longitudinal alignment with the metacarpal and phalanx. A longitudinal K-wire was placed to secure this using a 0.45 size. An additional 0.45 K-wire was then used to reapproximate the small fragment at the dislocation, and this was secured in place and transected. Fluoroscopy was used to confirm appropriate placement successfully. The remaining capsular structures around the joint itself were sutured in place using a 4-0 FiberWire to the periosteum to better give stability to this joint. Once adequately repaired, attention was then paid to location of the flexor tendon. The proximal portion of the flexor tendon had retracted back significantly into the carpal tunnel and thus a carpal tunnel incision was made. Due to this and the future postoperative swelling, a full carpal tunnel release was performed. Once adequately released, the area was irrigated, and exploration was undertaken for the flexor pollicis longus. This was located and had retracted back into the forearm. Once located, it brought and passed into the distal wound. The proximal and distal ends of the flexor tendon were reapproximated and a reasonable amount of trimming was done due to the burst type injury and the fraying of the ends. Once adequately trimmed, 4-0 FiberWire was used in a modified Persaud fashion to reapproximate the ends. These were reinforced with a single [id number] suture for a 4 strand repair, as well as a 6-0 nylon in an epitendinous repair. The dorsal extensor tendon was appreciated to be approximately 50% to 60% intact and thus not repaired but the frayed portions were trimmed marginally. Once the tendons were addressed, attention was then paid to meticulous dissection of the neurovascular bundles. The digital neurovascular bundle on the radial aspect of the thumb was located and the artery was significantly compromised and appears to have been ripped from the small proximal insertion. It is far too damaged for appropriate repair. The opposite neurovascular bundle was located and meticulously dissected. The operating microscope was then brought in for appropriate repair of the neurovascular structures using a 9-0 nylon suture. The ulnar digital nerve was appreciated to be intact, but significantly attenuated at its proximal portion. There is nothing additional to offer here at this time for repair given the damage. The radial nerve was repaired using a 9-0 nylon suture in an epineurial repair. Attention was then paid to the digital artery. Using the operating microscope, significant portion of the artery had to be trimmed back for viable non-damaged intima. Once adequately trimmed, the artery was reapproximated using a clamp and irrigated using 2% lidocaine. Once adequately irrigated, the tourniquet was deflated and adequate flow through the artery was appreciated. Once adequately reapproximated using the clamps, the tourniquet had been reinflated after adequate reperfusion time, the 9-0 nylon suture was then used to complete the repair of the digital artery. Once repaired, the tourniquet was desufflated. Adequate excellent flow through the vessel was present. Capillary refill was present in additional tissue but was slower than we would like. This is much likely due to the additional trauma to the small vessels from the crush-type injury. The wound was copiously irrigated and hemostasis was obtained. Thenar musculature was trimmed of any gross nonviable structures and any small tears. No repair was undertaken here. The majority of the muscular function was intact. Attention was then paid to closure of the skin, which was tacked closed using 5-0 nylon sutures. The artery was re-checked after closure by opening a suture directly over this, and it was appreciated to be flowing well. This was again attached close with less tension, and the patient was placed in a large bulky dressing with Xeroform covering the incision. A Jurgan's ball was used to cover the distal aspect of the K-wire. The patient tolerated this well, and all counts and needles were correct at the end of the case. FOLLOW UP INSTRUCTIONS: Refill in the PACU was improving, and the finger was warm with some significant improvement in color. We will continue to wait and see if the re-flow improves. He will be maintained in the hospital for Lovenox, and we will start a baby aspirin daily as well. He will also be maintained for pain control. HEGGTHE / JATINDERL /[id number] JUANITO
== END 2018-05-25 10:20 | disposition home or self-care (01) ==
LOC: MW.ED 12:13 → MW.SDS 14:16 → EDBD 14:16 → MW.MS 19:25 → MW.SDS 05-23 17:08 → MW.MS 05-23 17:08
PROVIDERS: ADMIT Plastic Surgery; ATTEND Plastic Surgery
DX: S68.012A Complete traumatic metacarpophalangeal amputation of left thumb, initial encounter (principal); S67.02XA Crushing injury of left thumb, initial encounter; S61.217A Laceration without foreign body of left little finger without damage to nail, initial encounter
CPT/HCPCS: 20827; 36415; 64721; 71260; 73130; 74177; 80053; 81001; 85025; 85610; 86850; 86900; 86901; 90471; 90715; 96361; 96365; 96372; 96375; 96376; 99285; A9270; G0378; J0330; J0690; J1100; J1650; J2001; J2250; J2270; J2370; J2405; J2704; J3010; J3490; J7040; 01810; 99284

== ENCOUNTER 2019-04-15 11:02 | Day surgery (SDC) | payer OTHER ==
[~2019-04-15 11:02] MED LIST: Betamethasone Acetate/Betamethasone Sod Phosphate 30 MG/5 ML MDV EPIDUR ONE; Iopamidol 200-M 10 ML vial ITHECAL ONE; Lidocaine 2% 5 ML SDV INJECT ONE; Ropivacaine 0.5% 5 MG/ML 30 ML SDV INJECT ONE
--- NOTE | 2019-04-15 19:42 | OR ---
SURGEON: Tamiko Rosales D.O. DATE OF PROCEDURE: 04/15/2019 PRIMARY SURGEON: Tamiko Rosales D.O. BUNDLE TIER AND LABELER: OR staff present: 1. Sary Montana RN. 2. Chet Prieto RN. 3. Maged Jarrett RT. WOUND CLASS: I. PREOPERATIVE DIAGNOSES: 1. Lumbar disk protrusion, L4-5. 2. Lumbar radiculopathy. 3. Chronic low back pain. POSTOPERATIVE DIAGNOSES: 1. Lumbar disk protrusion, L4-5. 2. Lumbar radiculopathy. 3. Chronic low back pain. PROCEDURE PERFORMED: 1. Intralaminar epidural steroid injection at L4-5. 2. Fluoroscopic guidance for needle placement. 3. Local with oral Valium for sedation. SCREENING QUESTIONS: The patient answered "no" to all of the following questions: 1. Are you allergic to latex? 2. Do you have a bleeding disorder? 3. Do you have any current local or systemic infections? 4. Are you taking any anti-inflammatories or blood thinners? 5. Do you have any joint replacements, heart valve replacements, or a pacemaker? DESCRIPTION OF PROCEDURE: The patient had the procedure thoroughly explained including all possible risks, benefits and alternatives. Consent was signed in my clinic indicating understanding and willingness to proceed. The patient presented to [facility] and was escorted to the dressing room to disrobe and change into a hospital gown. Preoperative vital signs were taken and stable. The patient reported that Valium was taken prior to the procedure. The patient was brought back to the procedure room and placed in the prone position on the procedure room table. A pillow was placed under the hips in order to flatten the lumbar lordosis. The back was prepped with ChloraPrep and sterilely draped. All personnel in the operating room were dressed in appropriate attire including surgical scrubs, head and shoe covers. This was to ensure sterility while in the treatment room. During the time fluoroscopy was in use, all personnel in the operating room wore lead sandhu with thyroid collars. Sterile technique was used throughout the procedure. The patient was awake and conversant throughout the procedure. There was no evidence of infection at the site of needle insertion. Skeletal landmarks were identified under fluoroscopy for the lumbar epidural. Skin was anesthetized with 2% lidocaine with a sterile 27-gauge 1.5 inch needle. Then a 20-gauge Tuohy epidural needle was placed in the epidural space with loss of resistance technique under fluoroscopic guidance. No heme, cerebrospinal fluid, or paresthesias were noted. Isovue-200 contrast dye was injected in 0.2 cubic centimeter increments and seen to outline the epidural space in both AP and lateral views. There was no intravascular flow pattern observed under live fluoroscopy. Then 12 milligrams of Celestone was slowly injected after negative aspiration. The patient tolerated the procedure well. Vital signs were stable during and after the procedure. The staff escorted the patient to the recovery area and the patient was released in stable condition after a brief stay in the recovery room monitored by the nurse. The patient was given both oral and written discharge and follow up instructions with recommendation to follow up given for 2-3 weeks. The patient voiced understanding including understanding of those signs and symptoms that would require emergency care. The patient knows how to contact the office if there are any additional problems or questions in the meantime. PREOPERATIVE PAIN: 5/10. POSTOPERATIVE PAIN: 1/10. FOLLOWUP: Follow up in the Pain Clinic in 4 weeks. MEHUL / CHANDA /[id number]
== END 2019-04-15 13:05 | disposition home or self-care (01) ==
LOC: MW.SDS 11:02
PROVIDERS: ATTEND Anesthesiology
DX: G89.29 Other chronic pain (principal); M51.16 Intervertebral disc disorders with radiculopathy, lumbar region; M51.17 Intervertebral disc disorders with radiculopathy, lumbosacral region; Z79.899 Other long term (current) drug therapy
CPT/HCPCS: 62323; J0702

== ENCOUNTER 2019-06-03 12:19 | Day surgery (SDC) | payer OTHER ==
[2019-06-03] MEDS ORDERED: Iopamidol 200-M 10 ML vial ITHECAL ONE (13:05)
[2019-06-03] MEDS ORDERED: Lidocaine 2% 5 ML SDV INJECT ONE (13:05)
[2019-06-03] MEDS ORDERED: Ropivacaine 0.5% 5 MG/ML 30 ML SDV INJECT ONE (13:05)
[2019-06-03] MEDS ORDERED: Betamethasone Acetate/Betamethasone Sod Phosphate 30 MG/5 ML MDV EPIDUR ONE (13:05)
--- NOTE | 2019-06-03 20:31 | OR ---
SURGEON: Tamiko Rosales D.O. DATE OF PROCEDURE: 06/03/2019 PRIMARY SURGEON: Tamiko Rosales D.O. ASSISTANTS: OR staff present: 1. Chet Prieto RN. 2. Jonnie Erickson RN. 3. Maged Wooten RN. 4. Jessica Patel RT. WOUND CLASS: I. PREOPERATIVE DIAGNOSES: 1. Lumbar degenerative disk disease, L4-5. 2. Lumbar rotoscoliosis. 3. Chronic low back pain. 4. Lumbar L4 radiculopathy. POSTOPERATIVE DIAGNOSES: 1. Lumbar degenerative disk disease, L4-5. 2. Lumbar rotoscoliosis. 3. Chronic low back pain. 4. Lumbar L4 radiculopathy. PROCEDURE PERFORMED: 1. Right L4 transforaminal epidural steroid injection. 2. Left L4 transforaminal epidural steroid injection. 3. Fluoroscopic guidance for needle placement. 4. Local with oral Valium for sedation. SCREENING QUESTIONS: The patient answered "no" to all of the following questions: 1. Are you allergic to iodine, Betadine or latex? 2. Do you have a bleeding disorder? 3. Do you have any joint replacements, heart valve replacements, or a pacemaker? 4. Are you allergic to anti-inflammatories or blood thinners? 5. Do you have any current local or systemic infections? DESCRIPTION OF PROCEDURE: The patient had the procedure thoroughly explained including risks, benefits and alternatives. Consent was signed in my clinic indicating understanding and willingness to proceed. The patient presented to [facility] [place] where the patient was escorted to the dressing room to disrobe and change into a hospital gown. Preoperative vital signs were taken and stable. The patient reported that Valium was taken prior to the procedure. The patient was brought to the procedure room and placed in the prone position on the table. A pillow was placed under the abdomen in order to flatten the lumbar lordosis. The back was prepped with ChloraPrep and sterilely draped. All personnel in the operating room were dressed in appropriate attire including surgical scrubs, head and shoe covers. This was to ensure sterility while in the treatment room. During the time fluoroscopy was in use, all personnel in the operating room wore lead sandhu with thyroid collars. Sterile technique was used during the procedure. The fluoroscope was placed for the right L4 transforaminal epidural steroid injection. There was no sign of infection at the skin site for needle insertion. The skin was anesthetized with 2% lidocaine with a 27 gauge 1-1/2 inch needle. Then a 22 gauge 3-1/2 inch spinal needle, advanced to the L4-5. Under direct fluoroscopic guidance needle position was verified in three views; AP, oblique and lateral, with 0.2 cubic centimeters increments of Isovue-200 dye. No intravascular flow pattern was observed under live fluoroscopy. Then 6 milligrams of Celestone and local was slowly injected after negative aspiration of heme, cerebrospinal fluid and no paresthesias were noted. The needle was cleared prior to removal from the skin.No adverse reactions were noted.The procedure was repeated as above for the left L4 transforaminal epidural injectionwith out complications. The patient was brought to the recovery room awake and in good condition by my staff. The patient was monitored and discharge instructions were given after a brief stay in the recovery area. Both oral and written discharge and follow up instructions were given. The patient will follow up in the clinic in 3-4 weeks post procedure to evaluate the efficacy. The patient verbalized understanding including understanding of those signs and symptoms that would require emergency care and knows how to contact the office if there are any problems or questions in the meantime. PREOPERATIVE PAIN: 5/10. POSTOPERATIVE PAIN: 0/10. FOLLOWUP: Follow up in the Pain Clinic in 1 month. MEHUL / CHANDA /[id number] JUANITO
== END 2019-06-03 14:20 | disposition home or self-care (01) ==
LOC: MW.SDS 12:19
PROVIDERS: ATTEND Anesthesiology
DX: G89.29 Other chronic pain (principal); M51.16 Intervertebral disc disorders with radiculopathy, lumbar region; M47.26 Other spondylosis with radiculopathy, lumbar region; M51.37 Other intervertebral disc degeneration, lumbosacral region; E78.5 Hyperlipidemia, unspecified; R73.03 Prediabetes; Z79.899 Other long term (current) drug therapy
CPT/HCPCS: 64483; J0702; 62323